=== PATIENT | female | born 1975 | race Caucasian/White ===

== ENCOUNTER 2023-06-19 05:45 | Day surgery (SDC) | payer OTHER, BC ==
[~2023-06-19] VITALS: Ht 160 cm; Wt 75.0 kg
[~2023-06-19 05:45] MED LIST: HYDROCODON-ACE1 EA11 PO
[2023-06-19 06:05] VITALS: BP 122/73
[2023-06-19 06:06] VITALS: BP 122/73
[2023-06-19] MEDS ORDERED: OXYCODONE HCL5 MG PO (06:09)
[2023-06-19] MEDS ORDERED: GABAPENTIN300 MG PO (06:10)
[2023-06-19] MEDS ORDERED: PROZAC10 MG PO (06:11)
--- NOTE | 2023-06-19 08:10 | NUR ---
06/19/23 0810 Chandni Milian PT TO PACU ALERT AND AWAKE DENIES NAUSEA REPORTS PAIN IS 5/10 FENTANYL GIVEN BY SOPHIA ARITA.
[2023-06-19 09:23] VITALS: BP 113/67
--- NOTE | 2023-06-19 09:26 | NUR ---
LE 0920: PT IS BACK TO DS FROM PACU. SHE IS AWAKE AND ALERT. IS AT THE BEDSIDE. PAIN IS TOLERABLE AT 2/10. DENIES NAUSEA. CALL LIGHT WITHIN REACH. PT WOULD LIKE WATER AND CHOCOLATE PUDDING. NO ADDITIONAL NEEDS AT THIS TIME. DC CRITERIA IS REVIEWED.
--- NOTE | 2023-06-19 10:00 | NUR ---
LE 0925: PT INDICATES THAT SHE NEEDS TO GET UP TO USE THE RESTROOM. A BEDSIDE COMMODE IS BROUGHT INTO THE ROOM. SHE IS EDUCATED TO NOT PUT ANY WEIGHT ON THE LEFT ANKLE, SHE VERBALIZES UNDERSTANDING. SHE IS ABLE TO SELF TRANSFER AND PIVOT ON HER OWN WITH MINIMAL 2 PERSON STANDBY ASSIST. RN'S AND STEP OUT TO GIVE HER SOME PRIVACY. LE 0930: PT IS HELPED BACK INTO BED AFTER VOIDING 575MLS OF URINE. IT IS NOTED THAT THE HEEL OF THE DRESSING IS SOAKED WITH BLOOD. DR. ROJO IS CONTACTED, HE ORDERS FOR THE AREA TO BE REINFORCED WITH ABD PAD AND KERLEX. HE ALSO ORDERS 2 GRAMS OF TXA. LE 0955: TXA IS STARTED. PT IS STARTING TO REPORT AN INCREASE IN PAIN OF 5/10. SHE HAS NO ORDERS FOR ORAL PAIN MEDS. SHE IS EDUCATED THAT SHE WILL CONTINUE WITH PAIN MEDICATIONS AT HOME. AND THAT WE WILL GET HERE OUT OF HERE ON THE HOUR DEVIN.
[2023-06-19 10:15] VITALS: BP 110/65
--- NOTE | 2023-06-19 10:16 | NUR ---
PT IS TOLERATING WATER AND PUDDING. SHE REPORTS TOLERABLE PAIN AT 5/10. IS AT THE BEDSIDE. CALL LIGHT WITHIN REACH. SHE HAS MET ALL DC CRITERIA. WILL WORKING ON DISCHARGING HOME.
--- NOTE | 2023-06-19 10:35 | NUR ---
LE 1020: PT AND ARE GIVEN VERBAL AND WRITTEN DC INSTRUCTIONS, THEY BOTH VERBALIZE UNDERSTANDING. QUESTIONS ARE ASKED AND ANSWERED. PT IS EDUCATED ON HOW TO BEST DRESS HERSELF AND TO OPEN THE CURTAIN WHEN READY. LE 1025: PT IS HELPED INTO A WHEELCHAIR AND TAKEN TO PERSONAL VEHICLE. DRESSING IS REINSPECTED AFTER BEING UP AND TO THE WHEEL. NO BLEEDING THROUGH, DRESSING REMAINS CLEAN AND INTACT. PT TRANSFERS HERSELF WITHOUT BEARING WEIGHT TO THE LEFT ANKLE INTO VEHICLE.
--- NOTE | 2023-06-19 12:11 | NUR ---
PT DECLINED PRAYER. DENIED NEEDS.
--- NOTE | 2023-06-20 07:32 | OR ---
[facility] [address], [place] [address] Signed DATE OF OPERATION: 06/19/2023 SURGEON: Radha Milian MD PREOPERATIVE DIAGNOSIS: Left ankle fracture dislocation, trimalleolar. POSTOPERATIVE DIAGNOSIS: Left ankle fracture dislocation, trimalleolar. PROCEDURE PERFORMED: Closed reduction and external fixation, left ankle PRODUCTION ESTIMATOR: Leisa Tello PA-C. ANESTHESIA: General. BLOOD LOSS: Minimal. IMPLANTS: Synthes large external fixator. BRIEF HISTORY: Hima is a 47-year-old female, who was roller-skating in her garage and fell twisting her ankle. She felt a pop and was unable to bear weight. Radiographs at the hospital showed a fracture dislocation of the ankle. She was reduced and placed in a posterior splint. By the time she got the clinic three days later, she had subluxed actually posterolaterally. Risks and benefits of application of the external fixator versus open reduction and internal fixation were discussed with her. Because of her swelling and skin condition, I felt that it was best to proceed with external fixator. She understood and wished to proceed. DESCRIPTION OF PROCEDURE: Once consent was obtained, she was taken to the operating room. After adequate anesthesia, she was placed on the OR table and the splint was removed. The leg was prepped and draped in a standard sterile fashion. Closed reduction was obtained with flexion, anterior translation and slight pronation. Symmetric reduction was obtained Electronically Signed By: RADHA MILIAN MD 06/20/23 0732 PATIENT NAME: HIMA WATSON OPERATIVE REPORT DATE OF : 79 REPORT #: [id number] PHYSICIAN: RADHA MILIAN MD PCP: NICOLE PORTER PA-C REPORT IS CONFIDENTIAL AND NOT TO BE RELEASED WITHOUT AUTHORIZATION [address], [place] [address] Signed with this. Two 4-0 pins were placed in the calcaneus and talus and connected with the connector. Two pins were placed in the midshaft tibia on the medial side. These were then connected with two connecting rods and the reduction was once again obtained and the external fixator was tightened up. Excellent maintenance of the reduction with the foot in neutral was obtained. Once this was accomplished, the pin sites were cleansed and dressed with Allevyn and Kerlix. She was awakened, taken to the recovery room in satisfactory condition. All sponge, needle, and instrument counts were correct. Radha Milian MD BA/CORTEZ /[id number] Copies: ~ Electronically Signed By: RADHA MILIAN MD 06/20/23 0732 PATIENT NAME: HIMA WATSON OPERATIVE REPORT DATE OF : 79 REPORT #: [id number] PHYSICIAN: RADHA MILIAN MD PCP: NICOLE PORTER PA-C REPORT IS CONFIDENTIAL AND NOT TO BE RELEASED WITHOUT AUTHORIZATION
== END 2023-06-19 10:25 | disposition home or self-care (01) ==
LOC: DS 05:45 → EDSTATUS 10:30
PROVIDERS: ATTEND Specialist
PROC: 0QSH35Z Reposition Left Tibia with External Fixation Device, Percutaneous Approach (ICD-10-PCS; 2023-06-19)
PROC: 3E0T3BZ Introduction of Anesthetic Agent into Peripheral Nerves and Plexi, Percutaneous Approach (ICD-10-PCS; 2023-06-19)
PROC: 0QSK35Z Reposition Left Fibula with External Fixation Device, Percutaneous Approach (ICD-10-PCS; principal; 2023-06-19 10:30)
DX: S82.852A Displaced trimalleolar fracture of left lower leg, initial encounter for closed fracture (principal); V00.131A Fall from skateboard, initial encounter; Y92.59 Other trade areas as the place of occurrence of the external cause; F41.9 Anxiety disorder, unspecified
CPT/HCPCS: 36415; 73600; 80053; 84703; 85025; J0131; J0690; J1100; J1170; J1885; J2001; J2250; J2405; J2704; J2795; J3010; J7121